=== PATIENT | male | born 1990 | race African-American/Black ===

== ENCOUNTER 2021-07-02 02:05 | Emergency (ER) | payer OTHER ==
[~2021-07-02] VITALS: Ht 172.7 cm; Wt 102.1 kg
[2021-07-02 03:15] VITALS: BP 128/71; TEMP 99.5
== END 2021-07-02 03:20 | disposition home or self-care (01) ==
LOC: ED 02:05
DX: J06.9 Acute upper respiratory infection, unspecified (principal); R50.9 Fever, unspecified; J11.1 Influenza due to unidentified influenza virus with other respiratory manifestations; Z20.822 Contact with and (suspected) exposure to COVID-19
CPT/HCPCS: 87502; 87635; 87651; 96372; 99283; J1100; U0003